=== PATIENT | male | born 1935 | race Caucasian/White ===

== ENCOUNTER 2020-11-23 15:51 | Inpatient (IN) | payer MEDICARE, BC ==
[2020-11-23 17:08] LABS: #Eosinphils 0.1 10x3/uL (0.0-0.5); #Monocytes 0.6 10x3/uL (0.0-1.1); #Neutrophils 4.4 10x3/uL (1.5-8.4); %Basophils 0.4 % (0.0-2.0); %Eosinophils 0.9 % (0.0-6.0); %Lymphocytes 8.7 % (18.0-47.0); %Monocytes 10.8 % (0.0-10.0); Hemoglobin 10.3 g/dL (13.5-17.5); Mean Corpuscular HGB CONC 32.8 g/dL (32.0-36.0); Mean Corpuscular Volume 94.6 fl (81.2-95.1); Mean Platelet Volume 10.1 fl (7.4-10.4); Platelet Count 62 10x3/uL (150-450); RBC Distribution Width 15.4 % (11.5-14.5); Red Blood Cell (RBC) Count 3.32 10x6/uL (4.32-5.72); White Blood Cell (WBC) Count 5.5 10x3/uL (3.5-10.5)
[2020-11-23 17:13] LABS: ALT (SGPT) 13 U/L (8-55); AST (SGOT) 15 U/L (5-34); Albumin 4.2 g/dL (3.4-4.8); Alkaline Phosphatase 58 U/L (40-110); Anion Gap 14 mmol/L (10-20); BUN (Urea Nitrogen) 20 mg/dL (8.4-25.7); Bilirubin, Total 0.7 mg/dL (0.2-1.2); Calc. Creatinine Clearance 0 mL/min (70-130); Calcium 9.2 mg/dL (7.8-10.44); Carbon Dioxide 32 mmol/L (23-31); Chloride 94 mmol/L (98-107); Globulin 2.3 g/dL (2.4-3.5); Glucose 101 mg/dL (83-110); Potassium 3.9 mmol/L (3.5-5.1); Protein, Total 6.5 g/dL (5.8-8.1); Sodium 136 mmol/L (136-145)
[2020-11-23 17:37] LABS: CKMB 1.6 ng/mL (0-6.6)
[2020-11-23 17:40] LABS: Hypochromia SLIGHT = 6-15 cells (100X) (0-5/hpf)
[2020-11-23 17:41] LABS: Platelet Morphology Comment Appears Decreased
[2020-11-23] MEDS ORDERED: Senokot S 8.6-50 MG TAB PO PRN (20:43)
[2020-11-23] MEDS ORDERED: Acetaminophen 325 MG TAB PO PRN (20:43)
[2020-11-23] MEDS ORDERED: Calcium Carbonate 500 MG ChewTAB PO PRN (20:43)
[2020-11-23] MEDS ORDERED: Lorazepam 0.5 MG TAB PO PRN (20:46)
[2020-11-23] MEDS ORDERED: Apixaban 2.5 MG TAB PO SCH (21:30)
[2020-11-23 21:34] LABS: Digoxin 1.21 ng/mL (0.8-2.0)
[2020-11-23 21:57] LABS: CKMB 1.4 ng/mL (0-6.6)
[2020-11-23] MEDS: Flecainide 50 MG TAB PO SCH (23:15)
[2020-11-23] MEDS: Docusate 100 MG CAP PO SCH (23:15)
[2020-11-24 00:20] VITALS: BMI 25.7
[2020-11-24 05:42] LABS: #Monocytes 0.4 10x3/uL (0.0-1.1); #Neutrophils 2.6 10x3/uL (1.5-8.4); %Basophils 0.5 % (0.0-2.0); %Eosinophils 1.1 % (0.0-6.0); %Lymphocytes 20.2 % (18.0-47.0); %Monocytes 9.6 % (0.0-10.0); %Neutrophils 68.3 % (40.0-75.0); Hemoglobin 9.1 g/dL (13.5-17.5); Mean Corpuscular Hemoglobin 30.8 pg (27.0-33.0); Mean Corpuscular Volume 93.6 fl (81.2-95.1); Mean Platelet Volume 10.2 fl (7.4-10.4); Platelet Count 57 10x3/uL (150-450); RBC Distribution Width 15.3 % (11.5-14.5); Red Blood Cell (RBC) Count 2.95 10x6/uL (4.32-5.72); White Blood Cell (WBC) Count 3.8 10x3/uL (3.5-10.5)
[2020-11-24 05:50] LABS: Anion Gap 16 mmol/L (10-20); BUN (Urea Nitrogen) 28 mg/dL (8.4-25.7); Calc. Creatinine Clearance 12 mL/min (70-130); Calcium 8.6 mg/dL (7.8-10.44); Carbon Dioxide 29 mmol/L (23-31); Chloride 95 mmol/L (98-107); Glucose 89 mg/dL (83-110); Potassium 4.4 mmol/L (3.5-5.1); Sodium 136 mmol/L (136-145)
[2020-11-24 05:51] LABS: SARS-CoV-2 PCR by NAA Not Detected (NotDetected)
[2020-11-24 05:57] LABS: Thyroid Stimulating Hormone 1.942 uIU/mL (0.35-4.94)
[2020-11-24 06:01] LABS: CKMB 0.9 ng/mL (0-6.6)
[2020-11-24] MEDS ORDERED: FLU VACC QS2020-21(65YR UP)/PF 240 MCG/0.7 ML SYRINGE IM ONE (06:30)
[2020-11-24] MEDS ORDERED: OMEGA ACID ETHYL ESTERS PO SCH (09:00)
[2020-11-24] MEDS: Cyanocobalamin (Vitamin B-12) 1,000 MCG TAB PO SCH (09:34)
[2020-11-24] MEDS: Docusate 100 MG CAP PO SCH ×2 (09:34→22:27)
[2020-11-24] MEDS: Folic Acid/Vit B Comp W-C PO SCH (09:34)
[2020-11-24] MEDS: DULoxetine 30 MG CAP PO SCH (09:34)
[2020-11-24] MEDS: Magnesium Oxide 400 MG TAB PO SCH ×2 (09:35→22:27)
[2020-11-24] MEDS: Ferrous Sulfate 325 MG TAB PO SCH ×2 (09:35→17:33)
[2020-11-24] MEDS: Aspirin 81 mg Enteric Coated Tablet PO SCH (09:35)
[2020-11-24] MEDS: Apixaban 2.5 MG TAB PO SCH ×2 (09:35→22:27)
[2020-11-24] MEDS: Polyethylene Glycol 3350 17 GM Packet PO SCH (09:35)
[2020-11-24] MEDS: Flecainide 50 MG TAB PO SCH ×2 (09:35→22:27)
[2020-11-24] MEDS: Digoxin 0.125 MG TAB PO SCH (09:35)
[2020-11-24 15:25] LABS: Vitamin D, 25 Hydroxy 24.4 ng/ml (> 30.0)
[2020-11-25] MEDS: Cyanocobalamin (Vitamin B-12) 1,000 MCG TAB PO SCH (10:09)
[2020-11-25] MEDS: Digoxin 0.125 MG TAB PO SCH (10:09)
[2020-11-25] MEDS: Aspirin 81 mg Enteric Coated Tablet PO SCH (10:09)
[2020-11-25] MEDS: Ferrous Sulfate 325 MG TAB PO SCH (10:10)
[2020-11-25] MEDS: Apixaban 2.5 MG TAB PO SCH (10:10)
[2020-11-25] MEDS: Folic Acid/Vit B Comp W-C PO SCH (10:11)
[2020-11-25] MEDS: DULoxetine 30 MG CAP PO SCH (10:12)
[2020-11-25] MEDS: Flecainide 50 MG TAB PO SCH (10:12)
[2020-11-25] MEDS: Magnesium Oxide 400 MG TAB PO SCH (10:12)
[2020-11-25] MEDS: Polyethylene Glycol 3350 17 GM Packet PO SCH (10:13)
[2020-11-25] MEDS: Docusate 100 MG CAP PO SCH (10:13)
[2020-11-25 13:30] VITALS: BP 155/60; TEMP 98
== END 2020-11-25 19:30 | disposition critical access hospital (66) | DRG 947 ==
LOC: CSHERS 15:51 → CSHTELE 22:21 → OBSVTOIN 11-25 11:15
PROVIDERS: ADMIT Student in an Organized Health Care Education/Training Program; ATTEND Hospitalist
DX: R53.83 Other fatigue (principal); N18.6 End stage renal disease; I12.0 Hypertensive chronic kidney disease with stage 5 chronic kidney disease or end stage renal disease; R41.82 Altered mental status, unspecified; T50.B95A Adverse effect of other viral vaccines, initial encounter; F03.90 Unspecified dementia, unspecified severity, without behavioral disturbance, psychotic disturbance, mood disturbance, and anxiety; Z20.822 Contact with and (suspected) exposure to COVID-19; I48.0 Paroxysmal atrial fibrillation; E78.5 Hyperlipidemia, unspecified; M19.90 Unspecified osteoarthritis, unspecified site; I49.5 Sick sinus syndrome; F41.9 Anxiety disorder, unspecified; N40.0 Benign prostatic hyperplasia without lower urinary tract symptoms; D63.1 Anemia in chronic kidney disease; R53.81 Other malaise; R26.9 Unspecified abnormalities of gait and mobility; G93.89 Other specified disorders of brain; Z96.641 Presence of right artificial hip joint; Z96.651 Presence of right artificial knee joint; Z88.5 Allergy status to narcotic agent; Z88.8 Allergy status to other drugs, medicaments and biological substances; Z86.79 Personal history of other diseases of the circulatory system; Z95.0 Presence of cardiac pacemaker; Z99.2 Dependence on renal dialysis; Z79.82 Long term (current) use of aspirin; Z79.899 Other long term (current) drug therapy
CPT/HCPCS: 36415; 70450; 71045; 80048; 80053; 80162; 82306; 82553; 83735; 83880; 84443; 84484; 85025; 87635; 90935; 93005; 93306; G0257; G0378; U0003; U0005

== ENCOUNTER 2021-01-04 12:16 | Emergency (ER) | payer MEDICARE, BC ==
[2021-01-04 12:52] LABS: #Monocytes 0.3 10x3/uL (0.0-1.1); #Neutrophils 5.2 10x3/uL (1.5-8.4); %Basophils 0.2 % (0.0-2.0); %Lymphocytes 9.2 % (18.0-47.0); %Monocytes 5.4 % (0.0-10.0); %Neutrophils 84.9 % (40.0-75.0); Hemoglobin 9.1 g/dL (13.5-17.5); Mean Corpuscular HGB CONC 31.8 g/dL (32.0-36.0); Mean Corpuscular Hemoglobin 28.6 pg (27.0-33.0); Mean Corpuscular Volume 89.9 fl (81.2-95.1); Mean Platelet Volume 9.7 fl (7.4-10.4); Platelet Count 106 10x3/uL (150-450); RBC Distribution Width 16.3 % (11.5-14.5); Red Blood Cell (RBC) Count 3.18 10x6/uL (4.32-5.72); White Blood Cell (WBC) Count 6.1 10x3/uL (3.5-10.5)
[2021-01-04 13:05] LABS: Anion Gap 23 mmol/L (10-20); Bilirubin, Total 0.6 mg/dL (0.2-1.2); Carbon Dioxide 21 mmol/L (23-31); Chloride 95 mmol/L (98-107); Potassium 5.8 mmol/L (3.5-5.1); Protein, Total 6.9 g/dL (5.8-8.1); Sodium 133 mmol/L (136-145)
[2021-01-04 13:10] LABS: AST (SGOT) 28 U/L (5-34)
[2021-01-04 13:21] LABS: ALT (SGPT) 14 U/L (8-55); Albumin 3.9 g/dL (3.4-4.8); Alkaline Phosphatase 78 U/L (40-110); BUN (Urea Nitrogen) 94 mg/dL (8.4-25.7); CK (CPK) 43 U/L (30-200); Calc. Creatinine Clearance 0 mL/min (70-130); Glucose 96 mg/dL (83-110); Lipase 50 U/L (8-78)
[2021-01-04 13:30] LABS: CKMB 2.2 ng/mL (0-6.6)
== END 2021-01-04 14:57 | disposition home or self-care (01) ==
LOC: CSHERS 12:16
DX: E87.5 Hyperkalemia (principal); I12.0 Hypertensive chronic kidney disease with stage 5 chronic kidney disease or end stage renal disease; N18.6 End stage renal disease; Z99.2 Dependence on renal dialysis; I48.91 Unspecified atrial fibrillation; Z87.891 Personal history of nicotine dependence
CPT/HCPCS: 70450; 71045; 80053; 82550; 82553; 83605; 83690; 84484; 85025; 93005